=== PATIENT | female | born 1950 | race Two or more races ===

== ENCOUNTER 2019-03-12 11:33 | Emergency (ER) | payer MEDICAID ==
[~2019-03-12] VITALS: Ht 160 cm; Wt 75.3 kg
[2019-03-12 11:51] VITALS: BP 128/90; Ht 160 cm; Wt 75.3 kg
== END 2019-03-12 12:34 | disposition home or self-care (01) ==
LOC: ED 11:33
DX: S56.09 Other injury of flexor muscle, fascia and tendon of thumb at forearm level (principal); X58.XXXA Exposure to other specified factors, initial encounter; Y93.89 Activity, other specified; Y92.89 Other specified places as the place of occurrence of the external cause; Y99.8 Other external cause status; F22 Delusional disorders